=== PATIENT | male | born 1990 | race Caucasian/White ===

== ENCOUNTER 2025-03-08 18:15 | Emergency (ER) | payer BC ==
[2025-03-08] MEDS: Bacitracin/Hydrocortisone/Neomycin/Polymyxin Ophth Oint 3.5 GM Tube EYERT SCH (19:05)
[2025-03-08] MEDS: Amoxicillin 500 MG Cap PO ONE (19:05)
== END 2025-03-08 19:17 | disposition home or self-care (01) ==
LOC: KA.ED 18:15
DX: H72.92 Unspecified perforation of tympanic membrane, left ear (principal); H66.92 Otitis media, unspecified, left ear
CPT/HCPCS: 99282; 99284; A9270-GY